=== PATIENT | female | born 1955 | race African-American/Black ===

== ENCOUNTER → 2017-06-27 | Outpatient (CLI) | payer OTHER ==
[~2017-06-27] MED LIST: BACTRIM,SEPT1 TABLET PO; GABAPENTIN300 MG PO; HIGH BLOOD PRESSURE; HYDROCHLOROTH12.5 M3 PO; IBUPROFEN800 MG PO; METOCLOPRAM5 MG/1 M1 PO; METOPROLOL TART50 MG PO; NAPROSYN500 MG PO; PERCOCET 10/1 TABLET PO; TIZANIDINE HCL4 MG PO; ZESTRIL40 MG PO
== END | disposition home or self-care (01) ==
LOC: CDC 13:00
DX: Z01.810 Encounter for preprocedural cardiovascular examination (principal); G56.02 Carpal tunnel syndrome, left upper limb; I10 Essential (primary) hypertension; R94.31 Abnormal electrocardiogram [ECG] [EKG]
CPT/HCPCS: 93000

== ENCOUNTER → 2018-01-31 | Outpatient (CLI) | payer OTHER | END | disposition home or self-care (01) | LOC: NUC 09:26 | DX: R13.12 Dysphagia, oropharyngeal phase (principal); M54.9 Dorsalgia, unspecified; Z86.010 Personal history of colon polyps | CPT/HCPCS: 78226; A9537 ==